=== PATIENT | male | born 1980 | race Caucasian/White ===

== ENCOUNTER → 2023-01-21 | Outpatient (CLI) | payer OTHER ==
[~2023-01-21] MED LIST: ACET325 PO; ALBU90OI INH; BENZ100A PO; CEPH500 PO; CLIN300 PO; CODGUAEL PO; CYCL10 PO; Flomax0.4 MG PO; HYDACE5 PO; IBUP600 PO; IBUP800 PO; METPRE4DP PO; Naprosyn500 MG PO; Norco 5-325 Ta1 EACH PO; OXYACE5T PO; PRED10 PO; Percocet 10-321 EACH PO; SULTRIDS PO; Ultram50 MG PO; Zithromax250 MG PO; Zofran Odt4 MG SL
[2023-01-24 21:09] LABS: CHLAMYDIA BY NAA Negative (Negative); GONOCOCCUS BY NAA Negative (Negative); TRICH VAG BY NAA Negative (Negative)
== END | disposition home or self-care (01) ==
LOC: LAB 18:34 → LAB SHORT 18:34
PROVIDERS: Physician Assistant
DX: S39.012A Strain of muscle, fascia and tendon of lower back, initial encounter (principal); Z20.9 Contact with and (suspected) exposure to unspecified communicable disease
CPT/HCPCS: 87070; 87086; 87147; 87205; 87491; 87591; 87661